=== PATIENT | male | born 1955 ===

== ENCOUNTER 2021-05-10 10:43 | Outpatient (REF) | payer MEDICARE, MEDICAID, SELFPAY | END 2021-05-10 10:44 | disposition home or self-care (01) | LOC: CF 10:43 | PROVIDERS: PCP Physician Assistant; Visit Provider Internal Medicine | DX: L73.2 Hidradenitis suppurativa (principal) | CPT/HCPCS: 87071; 87116; 87205; 99202 ==

== ENCOUNTER → 2021-06-07 11:15 | Outpatient (BNVA) | payer MEDICARE, MEDICAID, SELFPAY | PROVIDERS: PCP Physician Assistant; Visit Provider Internal Medicine | DX: L73.2 Hidradenitis suppurativa (principal) | CPT/HCPCS: 99212 ==

== ENCOUNTER → 2021-06-28 10:38 | Outpatient (BNVA) | payer MEDICARE, MEDICAID, SELFPAY | PROVIDERS: PCP Physician Assistant; Visit Provider Internal Medicine | DX: L73.2 Hidradenitis suppurativa (principal) | CPT/HCPCS: 99212 ==

== ENCOUNTER → 2021-08-16 11:21 | Outpatient (BNVA) | payer MEDICARE, MEDICAID, SELFPAY | PROVIDERS: PCP Physician Assistant; Visit Provider Internal Medicine | DX: L73.2 Hidradenitis suppurativa (principal) | CPT/HCPCS: 99212 ==